=== PATIENT | male | born 1980 | race Hispanic/Latino ===

== ENCOUNTER → 2024-10-30 09:05 | Outpatient (CLI) | payer OTHER, SELFPAY ==
--- NOTE | 2024-10-30 09:10 | DI.RAD.S_ITS ---
PROCEDURE: XR CHEST 2V INDICATIONS: Acute sinusitis, unspecified TECHNIQUE: 2 views of the chest were acquired. COMPARISON: None. FINDINGS: Surgical changes and devices: None. Lungs and pleura: Lungs are clear. No pleural effusions or pneumothorax. Mediastinum: Mediastinal contours are normal. Heart size is normal. Bones and chest wall: No suspicious bony abnormalities. Soft tissues appear unremarkable. IMPRESSION: No acute cardiopulmonary abnormality is seen. Dictated by: Lora Bills M.D. on 10/30/2024 at 13:05 Approved by: Lora Bills M.D. on 10/30/2024 at 13:06
== END ==
LOC: RESP 09:08
PROVIDERS: Family Provider Physician Assistant Surgical; PCP Physician Assistant Surgical; Referring Provider Chiropractor; Visit Provider Chiropractor
DX: J01.90 Acute sinusitis, unspecified (principal)
CPT/HCPCS: 71046; 94060